=== PATIENT | male | born 1975 | race American Indian/Alaskan Native ===

== ENCOUNTER 2016-10-09 17:21 | Inpatient (IN) | payer BC ==
[~2016-10-09 17:21] MED LIST: DECADRON IV SCH
[2016-10-09 17:29] LABS: Eosinophils % (Auto) 1.5 % (0.0-4.3); Hematocrit 40.7 % (35.5-45.6); Hemoglobin 13.6 gm/dl (11.8-15.2); Mean Corpuscular HGB Conc 33 % (32-34); Mean Corpuscular Hemoglobin 34 pg (28-32); Mean Corpuscular Volume 100 fl (84-94); Platelet Count 221 K/mm3 (140-440); Red Blood Count 4.06 M/mm3 (3.65-5.03); Red Cell Distribution Width 13.7 % (13.2-15.2); White Blood Count 4.1 K/mm3 (4.5-11.0)
--- NOTE | 2016-10-09 17:29 | Emergency Department Report ---
HPI - General Time Seen by Provider: 10/09/16 17:24 - HPI HPI: Charge nurse triage The patient is a 41-year-old male presenting with a chief complaint of right- sided weakness. The patient states that approximately 15:40 after coming in from smoking a cigarette at work he developed weakness in his right side. Patient states is unable to move his right upper extremity, right lower extremity or head. There is no paresthesia or dysarthria Location: [see above] Duration: [see above] Quality: Weakness Severity: [see above] Modifying factors: [see above] Context: [see above] Mode of transportation: [not driving] ED Past Medical Hx - Past Medical History Previous Medical History?: No - Surgical History Past Surgical History?: No - Family History Family history: no significant - Social History Smoking Status: Current Every Day Smoker Substance Use Type: None - Medications Home Medications: Home Medications Medication Instructions Recorded Confirmed Last Taken Type No Known Home Medications [No 10/09/16 10/09/16 Unknown History Reported Home Medications] ED Review of Systems ROS: Stated complaint: POSS STROKE Other details as noted in HPI Comment: All other systems reviewed and negative Constitutional: denies: chills, fever Eyes: denies: eye pain, eye discharge, vision change ENT: denies: ear pain, throat pain Respiratory: denies: cough, shortness of breath, wheezing Cardiovascular: denies: chest pain, palpitations Endocrine: no symptoms reported Gastrointestinal: denies: abdominal pain, nausea, diarrhea Genitourinary: denies: urgency, dysuria Musculoskeletal: denies: back pain, joint swelling, arthralgia Skin: denies: rash, lesions Neurological: weakness Psychiatric: denies: anxiety, depression Hematological/Lymphatic: denies: easy bleeding, easy bruising Physical Exam - Physical Exam Physical Exam: GENERAL: The patient is well-developed well-nourished male sitting on stretcher not appearing to be in acute distress. [] HEENT: Normocephalic. Atraumatic. Extraocular motions are intact. Patient has moist mucous membranes. NECK: Supple. Trachea midline CHEST/LUNGS: Clear to auscultation. There is no respiratory distress noted. HEART/CARDIOVASCULAR: Regular. There is no tachycardia. There is no gallop rub or murmur. ABDOMEN: Abdomen is soft, nontender. Patient has normal bowel sounds. There is no abdominal distention. SKIN: There is no rash. There is no edema. There is no diaphoresis. NEURO: The patient is awake, alert, and oriented. The patient is cooperative. The patient stated he states he is unable to move his right upper extremity or right lower extremity. However when the patient's right arm is raised above his head and released he maintain this position for approximately one to 2 seconds and then slowly lost his arm to drift down into his lap. The patient states this causes pain. The patient has normal speech. Cranial nerves II through XII grossly intact MUSCULOSKELETAL: There is no evidence of acute injury. ED Course - Consultations Consultation #1: 10/09/16 17:26 Neurology paged 10/09/16 17:[address] Alfred- after evaluation the patient he recommends getting a stat MRA brain and neck but also obtain an MRI of the neck 10/09/16 20:[address] Alfred-has reviewed the MRI cervical spine in CTAs brain and neck. Recommends conservative management. States no immediate intervention necessary for this bulge at this time. Recommends administering Decadron 10 mg IV and had patient admitted to the hospital for further workup Consultation #2: 10/09/16 20:23 Orthopedic surgery paged ED Medical Decision Making - Lab Data Result diagrams: 10/09/16 17:15 10/09/16 17:15 Laboratory Tests 10/09/16 10/09/16 10/09/16 17:15 17:15 17:15 WBC 4.1 L RBC 4.06 Hgb 13.6 Hct 40.7 MCV 100 H MCH 34 H MCHC 33 RDW 13.7 Plt Count 221 Lymph % (Auto) 37.9 H [place] % (Auto) 11.7 H Eos % (Auto) 1.5 Baso % (Auto) 2.0 H Lymph # 1.5 [place] # 0.5 Eos # 0.1 Baso # 0.1 Seg Neutrophils % 46.9 Seg Neutrophils # 1.9 PT 14.0 INR 1.09 APTT 34.0 Thrombin Time Sodium 136 L Potassium 4.2 Chloride 100.5 Carbon Dioxide 25 Anion Gap 15 BUN 7 L Creatinine 0.8 Estimated GFR > 60 BUN/Creatinine Ratio 8.75 Glucose 101 H Calcium 8.6 Troponin T < 0.010 10/09/16 17:15 WBC RBC Hgb Hct MCV MCH MCHC RDW Plt Count Lymph % (Auto) [place] % (Auto) Eos % (Auto) Baso % (Auto) Lymph # [place] # Eos # Baso # Seg Neutrophils % Seg Neutrophils # PT INR APTT Thrombin Time 16.3 Sodium Potassium Chloride Carbon Dioxide Anion Gap BUN Creatinine Estimated GFR BUN/Creatinine Ratio Glucose Calcium Troponin T - EKG Data -: EKG Interpreted by Me EKG shows normal: sinus rhythm Rate: bradycardia (59 bpm) - EKG Data When compared to previous EKG there are: previous EKG unavailable Interpretation: nonspecific ST-T wave karey (biphasic T-wave in lead V2. T wave inversion in lead V3, V4, aVL) - Radiology Data Radiology results: report reviewed (CT head, CTA neck, CTA brain, cervical MRI) , image reviewed (CT head, CTA neck, CTA brain, MRI cervical spine) CT head (read by radiologist)-no acute findings intracranially CTA brain (read by radiologist)-no acute stenosis seen CTA neck (read by radiologist)-no focal stenosis seen MRI cervical spine (read by radiologist)-study is limited by patient motion artifact. Vertebral body height and alignment are maintained. No acute marrow edema is seen. No cord signal abnormalities are identified. C4-5: There is mild posterior disc bulge, indenting the ventral thecal sac. sac measures 7 mm AP. No significant spinal stenosis. There is likely mild bilateral neural foraminal narrowing. - Differential Diagnosis CVA, TIA, cervical stenosis/radiculopathy, malingering Critical care attestation.: If time is entered above; I have spent that time in minutes in the direct care of this critically ill patient, excluding procedure time. ED Disposition Clinical Impression: Right sided weakness Disposition: OP ADMITTED IP TO THIS HOSP Is pt being admited?: No Does the pt Need Aspirin: No Condition: Stable Referrals: PRIMARY CARE, [Primary Care Provider] - 3-5 Days Time of Disposition: 20:46 (hospitalist paged)
[2016-10-09 17:40] LABS: INR 1.09 (0.87-1.13)
--- NOTE | 2016-10-09 17:45 | Cat Scan Report ---
FINAL REPORT PROCEDURE: CT HEAD/BRAIN WO CON TECHNIQUE: Computerized tomography of the head was performed without contrast material. HISTORY: neuro deficits \T\lt; 6hrs or sx present upon awakening COMPARISON: No prior studies are available for comparison. FINDINGS: No CT evidence of intracranial mass, hemorrhage, acute territorial infarction, or hydrocephalus. The intracranial arteries are symmetric in density. There is left posterior scalp soft tissue swelling. No acute fracture is seen. IMPRESSION: No CT evidence of acute intracranial abnormality. Posterior scalp soft tissue swelling Findings were discussed by telephone with Dr. Petersen at 4:39 p.m. central standard time on 10/09/2016.
[2016-10-09] MEDS ORDERED: NACL ONE (18:03)
[2016-10-09 18:12] LABS: Anion Gap 15 mmol/L; BUN/Creatinine Ratio 8.75; Blood Urea Nitrogen 7 mg/dL (9-20); Calcium 8.6 mg/dL (8.4-10.2); Carbon Dioxide 25 mmol/L (22-30); Chloride 100.5 mmol/L (98-107); Glucose 101 mg/dL (75-100); Potassium 4.2 mmol/L (3.6-5.0); Sodium 136 mmol/L (137-145)
--- NOTE | 2016-10-09 20:14 | Magnetic Resonance Report ---
FINAL REPORT PROCEDURE: MR CERVICAL SPINE WO CON TECHNIQUE: Magnetic resonance imaging of the cervical spine was performed using standard pulse sequences without contrast material. HISTORY: neck pain, right sided weakness COMPARISON: No prior studies are available for comparison. FINDINGS: Study is limited by patient motion artifact. Vertebral body heights and alignment are maintained. No acute marrow edema is seen. No cord signal abnormalities are identified. C1-2: No significant abnormality. C2-3: No significant abnormality . C3-4: No significant abnormality is identified. C4-5: There is mild posterior disc bulge, indenting the ventral thecal sac. Thecal sac measures 7 millimeters AP. No significant spinal stenosis. There is likely mild bilateral neural foraminal narrowing. C5-6: Minimal broad-based posterior disc bulge, without significant spinal stenosis or neural foraminal narrowing. C6-7: Mild right posterior lateral disc bulge, without significant spinal stenosis. Minimal right neural foraminal narrowing. C7-T1: No significant abnormality . Other: None . IMPRESSION: Mild degenerative disc changes from C4-5 through C6-7, as described above.
--- NOTE | 2016-10-09 20:24 | Cat Scan Report ---
FINAL REPORT PROCEDURE: CT ANGIO HEAD TECHNIQUE: Computerized tomographic angiography of the head was performed after the IV injection of iodinated nonionic contrast including image processing. The image data was postprocessed using 2-dimensional multiplanar reformatted (MPR) and 3-dimensional (MIP and/or volume rendered) techniques. HISTORY: right-sided weakness COMPARISON: No prior studies are available for comparison. FINDINGS: Intracranial vessels: Carotid siphon: Normal. Anterior cerebral: Normal. Middle cerebral: Normal. Posterior cerebral:Symmetric and patent. Bilateral posterior communicating arteries are present. Vertebral arteries including basilar: Normal. Aneurysms: None. Dural sinuses: Normal. IMPRESSION: No focal stenosis identified
--- NOTE | 2016-10-09 20:33 | Cat Scan Report ---
FINAL REPORT PROCEDURE: CT ANGIO NECK TECHNIQUE: Computerized tomographic angiography of the neck was performed after the IV injection of iodinated nonionic contrast including image processing. The image data was postprocessed using 2-dimensional multiplanar reformatted (MPR) and 3-dimensional (MIP and/or volume rendered) techniques. HISTORY: right-sided weakness COMPARISON: No prior studies are available for comparison. Note: Assessment of carotid artery stenosis is based on measurement of the distal internal carotid artery diameter as the denominator for stenosis calculations and the [place] Symptomatic Carotid Endarterectomy Trial (NASCET) stenosis criteria . CPT 3100F FINDINGS: Sinuses: Normal . Non vascular cervical structures: There are dots of air in the left neck soft tissues, possibly related to IV. Aortic arch: Normal . Right carotid artery: Normal . Left carotid artery: Normal . Vertebral arteries: Bilateral small but symmetric vertebral arteries may be developmental. IMPRESSION: Bilateral vertebral arteries are symmetric but small in caliber, which may be developmental. No focal arterial stenosis is identified Dots of air in the left neck soft tissues may be air within vessels related to the IV. Further evaluation could be obtained if there is concern for other etiology.
[2016-10-09] MEDS ORDERED: DECADRON IV ONE (20:43)
[2016-10-09] MEDS ORDERED: NORCO 5/325 PO ONE (20:44)
[2016-10-09] MEDS ORDERED: TYLENOL PO PRN (21:48)
[2016-10-09] MEDS ORDERED: ZOFRAN IV PRN (21:48)
[2016-10-09] MEDS ORDERED: SODIUM CHLORIDE FLUSH SYRINGE 10 ML IV PRN (21:48)
[2016-10-09] MEDS ORDERED: DULCOLAX PR PRN (21:48)
[2016-10-09] MEDS ORDERED: PROVENTIL IH PRN (21:48)
[2016-10-09] MEDS ORDERED: MILK OF MAGNESIA PO PRN (21:48)
--- NOTE | 2016-10-09 21:48 | History and Physical Report ---
History of Present Illness Date of examination: 10/09/16 History of present illness: 41-year-old man with no medical problem comes emergency room with complaints of sudden onset of pain started from the neck to the foot which started around 1: 00 in the morning. He went to bed when he woke up he continued to have this pain which she describes as a sharp pain, intermittent in nature for 15 minutes. He went to work and around 4 PM symptoms worsen, he was unable to move and developed right light weakness. He denies viral or GI illness, bowel or bladder incontinent. Patient was evaluated by the tele neurologist, Dr. Bellamy, he was given dexamethasone 10 mg IV 1 Patient denies chest pain, palpitation, shortness of breath, cough, abdominal pain, hematochezia, dysuria, frequency, focal weakness, dysarthria, sensory deficit, fever chills, polydipsia polyuria, hot or cold intolerance, easy bruisability, or rash or bleeding from mucosal membrane, rhinorrhea, epistaxis, earache, tinnitus, blurry vision, eye discharge, anxiety, depression. Other review of systems negative PAST SURGICAL HISTORY: None SOCIAL HISTORY: Smoke half a pack a day, social alcohol, no drugs FAMILY HISTORY: Hypertension Medications and Allergies Allergies Allergy/AdvReac Type Severity Reaction Status Date / Time Penicillins Allergy Unknown Verified 10/09/16 18:22 Home Medications Medication Instructions Recorded Confirmed Last Taken Type No Known Home Medications [No 10/09/16 10/09/16 Unknown History Reported Home Medications] Exam - Physical Exam Narrative exam: Gen. appearance: Patient lying in bed, no apparent distress HEENT: Normocephalic, atraumatic, pupils equally round and reactive to light, extraocular movement intact, and no sclericterus,. No JVD or thyromegaly or nodule,neck supple, no carotid bruit ,mucous membranes moist, no exudate or erythema Heart: S1, S2, regular rate and rhythm Lungs: Clear to auscultation bilaterally, breathing comfortable Abdomen: Positive bowel sounds, nontender, nondistended, no organomegaly Extremity: No edema, cyanosis, clubbing Skin: No rash, nodules, warm, dry Neuro: Oriented 3, cranial nerves II-12 intact, speech is fluent, right upper and lower extremity 1/5, and sensory intact - Constitutional Vitals: Temp Pulse Resp BP Pulse Ox 97.3 F L 64 18 121/62 99 10/09/16 18:10 10/09/16 20:59 10/09/16 20:59 10/09/16 20:59 10/09/16 20:59 Results - Labs CBC & Chem 7: 10/09/16 17:15 10/09/16 17:15 Labs: Abnormal lab results 10/09/16 10/09/16 Range/Units 17:15 17:15 WBC 4.1 L (4.5-11.0) K/mm3 MCV 100 H (84-94) fl MCH 34 H (28-32) pg Lymph % (Auto) 37.9 H (13.4-35.0) % [place] % (Auto) 11.7 H (0.0-7.3) % Baso % (Auto) 2.0 H (0.0-1.8) % Sodium 136 L (137-145) mmol/L BUN 7 L (9-20) mg/dL Glucose 101 H (75-100) mg/dL - Imaging and Cardiology CT Scan - head: report reviewed Assessment and Plan CT of the head and makes, MRI of the C-spine no acute pathology Right-sided weakness, unclear etiology at this point Admit to medicine Continue IV steroids per neurology, physical and occupational therapy Consult neurology, obtain MRI of the head Start DVT prophylaxis, do neurochecks Case discussed with neurology
[2016-10-09] MEDS ORDERED: ZOCOR PO SCH (22:00)
[2016-10-10] MEDS: DECADRON IV SCH ×2 (04:11→15:16)
[2016-10-10] MEDS ORDERED: LOVENOX SUB-Q SCH (10:00)
--- NOTE | 2016-10-10 10:24 | Magnetic Resonance Report ---
MRI scan of brain: History: Stroke. Technique: Multiplanar, multisequence images were obtained without contrast injection. Findings: No evidence of restricted diffusion. The ventricles are normal in size and midline in location. No evidence of acute ischemia, or mass. No extra axial fluid collection. Normal brainstem and cerebellum. Normal sinuses and mastoid air cells. Impression: No acute intracranial abnormality.
[2016-10-10 11:56] VITALS: BP 107/57
--- NOTE | 2016-10-10 12:37 | Consultation ---
History of Present Illness - [facility] Consult date: 10/10/16 Consult reason: neck pain History of present illness: 41-year-old man with no medical problem comes emergency room with complaints of sudden onset of pain started from the neck to the foot which started around 1: 00 in the morning. He went to bed when he woke up he continued to have this pain which she describes as a sharp pain, intermittent in nature for 15 minutes. He went to work and around 4 PM symptoms worsen, he was unable to move and developed right light weakness. Patient placed in observation status in the ED...Currently states pain better and now able to use both Upper and lower extremities without difficulty... Medications and Allergies Allergies Allergy/AdvReac Type Severity Reaction Status Date / Time Penicillins Allergy Unknown Verified 10/09/16 18:22 Home Medications Medication Instructions Recorded Confirmed Last Taken Type No Known Home Medications [No 10/09/16 10/09/16 Unknown History Reported Home Medications] Active Meds: Active Medications Acetaminophen (Tylenol) 650 mg PO Q4H PRN PRN Reason: Pain, Mild (1-3) Last Admin: 10/10/16 08:09 Dose: 650 mg Albuterol (Proventil) 2.5 mg IH Q3HRT PRN PRN Reason: Shortness Of Breath Bisacodyl (Dulcolax) 10 mg WA QDAY PRN PRN Reason: Constipation Dexamethasone (Decadron) 4 mg IV Q8H [facility] Last Admin: 10/10/16 04:11 Dose: 4 mg Enoxaparin Sodium (Lovenox) 40 mg SUB-Q QDAY [facility] Last Admin: 10/10/16 09:29 Dose: 40 mg Magnesium Hydroxide (Milk Of Magnesia) 30 ml PO Q4H PRN PRN Reason: Constipation Ondansetron HCl (Zofran) 4 mg IV Q8H PRN PRN Reason: N/V unrelieved by Reglan Simvastatin (Zocor) 20 mg PO QHS [facility] Last Admin: 10/09/16 22:35 Dose: 20 mg Sodium Chloride (Sodium Chloride Flush Syringe 10 Ml) 10 ml IV PRN PRN PRN Reason: LINE FLUSH Physical Examination - Physical exam Narrative exam: Alert and oriented x 3 slight tenderness right trapezius muscles, good active and passive ROM at C- spine, able to move all joints in UE/LE's Assessment and Plan Neck and right sided arm and leg pain/weakness, resolved recommend observation only, return our offfice for f/u in 1 wk
--- NOTE | 2016-10-10 12:39 | Consultation ---
History of Present Illness - Reason for Consult Consult date: 10/10/16 stroke - History of Present Illness weakness is better he is up and ambulating per staff nurse stroke w/u is pending reported that MRI is negative and if stable can go home Medications and Allergies Allergies Allergy/AdvReac Type Severity Reaction Status Date / Time Penicillins Allergy Unknown Verified 10/09/16 18:22 Home Medications Medication Instructions Recorded Confirmed Last Taken Type No Known Home Medications [No 10/09/16 10/09/16 Unknown History Reported Home Medications] Active Meds: Active Medications Acetaminophen (Tylenol) 650 mg PO Q4H PRN PRN Reason: Pain, Mild (1-3) Last Admin: 10/10/16 08:09 Dose: 650 mg Albuterol (Proventil) 2.5 mg IH Q3HRT PRN PRN Reason: Shortness Of Breath Bisacodyl (Dulcolax) 10 mg DC QDAY PRN PRN Reason: Constipation Dexamethasone (Decadron) 4 mg IV Q8H [facility] Last Admin: 10/10/16 04:11 Dose: 4 mg Enoxaparin Sodium (Lovenox) 40 mg SUB-Q QDAY [facility] Last Admin: 10/10/16 09:29 Dose: 40 mg Magnesium Hydroxide (Milk Of Magnesia) 30 ml PO Q4H PRN PRN Reason: Constipation Ondansetron HCl (Zofran) 4 mg IV Q8H PRN PRN Reason: N/V unrelieved by Reglan Simvastatin (Zocor) 20 mg PO QHS [facility] Last Admin: 10/09/16 22:35 Dose: 20 mg Sodium Chloride (Sodium Chloride Flush Syringe 10 Ml) 10 ml IV PRN PRN PRN Reason: LINE FLUSH Exam - Constitutional Vitals: Temp Pulse Resp BP Pulse Ox 98.3 F 62 12 107/57 100 10/10/16 11:55 10/10/16 11:55 10/10/16 11:55 10/10/16 11:55 10/10/16 11:55 Results - Labs CBC & Chem 7: 10/09/16 17:15 10/09/16 17:15 Labs: Abnormal lab results 10/10/16 Range/Units 07:02 HDL Cholesterol 61 H (40-59) mg/dL
--- NOTE | 2016-10-10 13:50 | Discharge Summary ---
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 smoking cessation. If you have recurrent weakness or chest pain ,contact MD or go to ER Follow up with: PRIMARY CARE, [Primary Care Provider] - 3-5 Days
--- NOTE | 2016-10-13 09:04 | Query- General ---
Dear Date:_10/13/16 Fire Sprinkler Inspector/CDS:Shelbie Bishop Phone#:_[phone] Exercise your independent professional judgment when responding to this query. Questions asked do not imply a particular answer is desired or expected. We greatly appreciate your clarification on this issue. Clinical Documentation States: 41-year-old man with no medical problem comes emergency room with complaints of sudden onset of pain started from the neck to the foot which started around 1: 00 in the morning. He went to bed when he woke up he continued to have this pain which she describes as a sharp pain, intermittent in nature for 15 minutes. He went to work and around 4 PM symptoms worsen, he was unable to move and developed right light weakness. He denies viral or GI illness, bowel or bladder incontinent. Patient was evaluated by the tele neurologist, Dr. Bellamy, he was given dexamethasone 10 mg IV 1 Clinical Findings Show (include reference to source document): Brain MRI: No Acute intracranial abnormalities Dr. Boyce Consult: Neck and right sided arm and leg pain/weakness, resolved recommend observation only, return our office for f/u in [address] Noe: weakness is better he is up and ambulating per staff nurse stroke w/u is pending reported that MRI is negative and if stable can go home Given the above clinical scenario can you please provide an appropriate diagnosis based on your knowledge of the patient: PHYSICIAN RESPONSE: Etiology of Rt sided Weakness: __Possible TIA Present on Admission: [x ] Yes (Y) [ ] Clinically undeterminable (W) [ ]No(N) Please also document response in your Progress Notes and/or Discharge Summary and indicate if the condition was present on admission. MTDD
== END 2016-10-10 15:50 | disposition home or self-care (01) | DRG 69 ==
LOC: ED 17:21 → 4A 21:48
PROVIDERS: ADMIT Internal Medicine; ATTEND Internal Medicine
DX: G45.9 Transient cerebral ischemic attack, unspecified (principal); R53.1 Weakness; F17.210 Nicotine dependence, cigarettes, uncomplicated; Z82.49 Family history of ischemic heart disease and other diseases of the circulatory system; Z88.0 Allergy status to penicillin; M79.601 Pain in right arm; M79.606 Pain in leg, unspecified
CPT/HCPCS: 36415; 70450; 70496; 70498; 70551; 72141; 80048; 80061; 84484; 85025; 85610; 85670; 85730; 93005; 93010; 96372; 96374; 96375; J1100; J1650; Q9967